=== PATIENT | female | born 1950 | race Caucasian/White ===

== ENCOUNTER → 2017-02-04 | Outpatient (CLI) | payer BC, SELFPAY | PROVIDERS: Family Provider Family Medicine; Visit Provider Family Medicine | DX: R05 Cough (principal) | CPT/HCPCS: 71020 ==

== ENCOUNTER → 2017-10-22 08:16 | Outpatient (CLI) | payer MEDICARE, BC, SELFPAY ==
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
== END ==
PROVIDERS: Family Provider Family Medicine; PCP Family Medicine; Visit Provider Family Medicine
DX: Z78.0 Asymptomatic menopausal state (principal)
CPT/HCPCS: 77080

== ENCOUNTER → 2018-02-05 09:01 | Outpatient (CLI) | payer MEDICARE, BC, SELFPAY ==
--- NOTE | 2018-02-05 09:10 | XR_ITS ---
XR chest 2V HISTORY: ITS.REASON: HTN, VIT D DEFICIENCY,GERD, ACQUIRED VENTRICULAR HYPERTROPHY ORDERING PHYSICIAN: James Rose MD PATIENT AGE: 67 years COMPARISON: PA and lateral chest 02/04/2017 FINDINGS: The cardiomediastinal silhouette and pulmonary vascularity are within normal limits. There is a subtle ill-defined opacity in the right infrahilar region seen on the PA projection which is likely confluence of vascular shadows but there is no definite abnormality seen on the lateral projection. This tends to favor confluence of vascular shadows rather than an early pneumonic infiltrate. No acute bony abnormalities. IMPRESSION: Negative chest, no acute finding
== END ==
PROVIDERS: PCP Family Medicine; Visit Provider Family Medicine
DX: K21.9 Gastro-esophageal reflux disease without esophagitis; R73.9 Hyperglycemia, unspecified; E78.2 Mixed hyperlipidemia; E55.9 Vitamin D deficiency, unspecified; Z68.41 Body mass index [BMI] 40.0-44.9, adult; I11.9 Hypertensive heart disease without heart failure
CPT/HCPCS: 71046

== ENCOUNTER → 2019-01-27 13:55 | Outpatient (CLI) | payer MEDICARE, BC, SELFPAY ==
[2019-01-27 16:09] LABS: Blood Urea Nitrogen 18 mg/dL (7-18); Creatinine,Serum 1.06 mg/dL (0.55-1.02); Estimated Glomerular Filt Rate 52 ml/min (>60); GFR (African American) 63 ML/MIN (>60)
== END ==
PROVIDERS: Visit Provider Family Medicine
DX: R10.31 Right lower quadrant pain (principal)
CPT/HCPCS: 36415; 82565; 84520

== ENCOUNTER → 2019-02-04 08:44 | Outpatient (CLI) | payer MEDICARE, BC, SELFPAY ==
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
== END ==
PROVIDERS: PCP Family Medicine; Visit Provider Family Medicine
DX: R10.31 Right lower quadrant pain (principal); R31.29 Other microscopic hematuria
CPT/HCPCS: 74177; Q9967

== ENCOUNTER 2019-09-10 18:09 | Emergency (ER) | payer MEDICARE, BC, SELFPAY ==
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
[2019-09-10 18:13] VITALS: BP 139/72; PULSE 74; RESP 18; TEMP 36.8; O2SAT 96
--- NOTE | 2019-09-10 18:13 | PC.NURSE ---
Trauma Alert Cancelled.
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
[2019-09-10 18:20] VITALS: BMI 46.0
--- NOTE | 2019-09-10 18:20 | PC.NURSE ---
pt to CT
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
[2019-09-10 18:26] LABS: Basophils # 0.1 K/mm3 (0-0.2); Basophils % 0.5 % (0.1-2.0); Eosinophils # 0.2 K/mm3 (0.0-0.4); Eosinophils % 1.9 % (0.1-12.0); Hematocrit 39.6 % (37.0-47.0); Hemoglobin 14.1 g/dL (12.2-16.2); Lymphocytes # 4.2 K/mm3 (0.7-4.5); Lymphocytes % 39.4 % (10-50); Mean Corpuscular HGB Conc 35.7 g/dL (31.8-35.4); Mean Corpuscular Hemoglobin 30.8 pg (27.0-31.2); Mean Corpuscular Volume 86.4 fl (81-99); Mean Platelet Volume 7.5 fl (7.4-10.4); Monocytes # 0.6 K/mm3 (0.1-1.0); Neutrophils # 5.6 K/mm3 (1.8-7.8); Neutrophils % 52.3 % (37.0-80.0); Platelet Count 404 K/mm3 (142-424); Red Blood Count 4.58 M/mm3 (4.20-5.40); White Blood Count 10.7 K/mm3 (4.8-10.8)
[2019-09-10 18:28] LABS: Chloride 103 mmol/L (98-107)
[2019-09-10 18:29] LABS: Potassium 3.6 mmoL/L (3.5-5.1); Sodium 140 mmol/L (136-145)
[2019-09-10 18:31] LABS: Alanine Aminotransferase 31 U/L (12-78); Albumin Level 4.3 g/dl (3.5-5.0); Alkaline Phosphatase 69 U/L (38-126); Anion Gap 13.6 mEq/L (5-15); Aspartate Amino Transferase 27 U/L (14-36); Bilirubin,Total 0.5 mg/dl (0.2-1.3); Blood Urea Nitrogen 17 mg/dl (7-17); Carbon Dioxide 27 mmol/L (22.0-30.0); Creatinine Clearance Estimated 45 mL/min (50-200); Estimated Glomerular Filt Rate 72 ml/min (>60); GFR (African American) 87 ML/MIN (>60); Total Protein,Serum 7.2 g/dl (6.3-8.2)
[2019-09-10 18:32] LABS: Albumin/Globulin Ratio 1.5 (1.1-1.8); Calcium 9.6 mg/dl (8.4-10.2); Globulin 2.9 g/dL (1.3-3.2); Glucose 139 mg/dl (74-100)
[2019-09-10 18:43] LABS: Activated Partial Thrombo Time 20.7 seconds (23.6-34.0); INR 1.01 (0.9-1.1); Prothrombin Time 10.4 seconds (9.4-11.8)
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
[2019-09-10 19:00] VITALS: BP 117/56; PULSE 68; RESP 18; O2SAT 98
[2019-09-10 19:07] VITALS: BP 117/59; PULSE 67; O2SAT 97
--- NOTE | 2019-09-10 19:19 | PC.NURSE ---
shift change report given to [facility]
[2019-09-10 19:57] VITALS: BP 115/63; PULSE 67; RESP 17; TEMP 36.8; O2SAT 97
== END 2019-09-10 20:00 | disposition home or self-care (01) ==
PROVIDERS: Emergency Provider Emergency Medicine; PCP Family Medicine
DX: S00.531A Contusion of lip, initial encounter (principal); S50.02XA Contusion of left elbow, initial encounter; S70.01XA Contusion of right hip, initial encounter; S60.212A Contusion of left wrist, initial encounter; S20.212A Contusion of left front wall of thorax, initial encounter; S20.211A Contusion of right front wall of thorax, initial encounter; R51 Headache; V86.55XA Driver of 3- or 4- wheeled all-terrain vehicle (ATV) injured in nontraffic accident, initial encounter; Y92.73 Farm field as the place of occurrence of the external cause; I10 Essential (primary) hypertension; K21.9 Gastro-esophageal reflux disease without esophagitis; Z88.1 Allergy status to other antibiotic agents; E78.5 Hyperlipidemia, unspecified; Z79.899 Other long term (current) drug therapy
CPT/HCPCS: 70450; 71045; 72125; 73080; 73110; 73502; 80053; 85025; 85610; 85730; 96374; 99282

== ENCOUNTER → 2020-04-25 10:16 | Outpatient (CLI) | payer MEDICARE, BC, SELFPAY ==
--- NOTE | 2020-04-25 10:20 | CT_ITS ---
PROCEDURE: CT ABDOMEN WO CON CLINICAL HISTORY: ABD PAIN Right sided abd pain Prior on pacs COMPARISON: CT CT ABDOMEN PELVIS W CON from 02/04/2019 TECHNIQUE: Axial images obtained with sagittal and coronal reformats. All CT scans at the facility use one or more dose reduction, viz: automated exposure control, ma/kV adjustment per patient size (including targeted exams where dose is matched to indication, i.e. head), or iterative reconstruction technique. FINDINGS: Hepatic steatosis. Prior cholecystectomy. Small hiatal hernia. No focal liver lesion identified without contrast. The spleen, adrenal glands, and pancreas has an unremarkable unenhanced appearance. No renal or ureteral calculi. Parapelvic renal cyst on the left and small right renal cortical cyst. No renal or ureteral calculi. No hydronephrosis. Colonic diverticulosis is present. No evidence of appendicitis or diverticulitis. The pelvis is not imaged on this exam. No acute bony findings. IMPRESSION: As above, no acute finding Dictated by: Nicho Salcedo MD 04/27/2020 10:12 Nicho Salcedo MD in [facility] 04/27/2020 10:12
== END ==
PROVIDERS: PCP Family Medicine; Visit Provider Family Medicine
DX: R10.84 Generalized abdominal pain (principal)
CPT/HCPCS: 74150

== ENCOUNTER → 2022-01-07 12:12 | Outpatient (CLI) | payer MEDICARE, BC, SELFPAY ==
--- NOTE | 2022-01-07 12:15 | CA_ITS ---
FINAL REPORT TECHNIQUE: Compression goldsmith scale and Doppler evaluation CLINICAL HISTORY: .right posterior knee pain, obesity FINDINGS: Femoral and popliteal veins show normal compressibility and flow. Visualized portion of the calf veins are patent by Doppler exam. IMPRESSION: No evidence of right lower extremity deep venous thrombosis Reviewed, Interpreted and Dictated by Maya Sewell MD Transcribed by Anne Jain Authenticated and [facility]
== END ==
PROVIDERS: PCP Family Medicine; Visit Provider Family Medicine
DX: M79.604 Pain in right leg (principal); R60.0 Localized edema
CPT/HCPCS: 93971

== ENCOUNTER 2023-04-28 13:12 | Outpatient (CLI) | payer MEDICARE, BC, SELFPAY ==
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
[2023-04-28 13:44] LABS: Blood Urea Nitrogen 15 mg/dl (7-17); Estimated Glomerular Filt Rate 62 ml/min (>60); GFR (African American) 75 ML/MIN (>60)
[2023-04-28] MEDS: GADOTERIDOL INJ 17ML SYRINGE 25 ML IV (14:26)
[2023-04-28] MEDS: SODIUM CHLORIDE 0.9% 10ML SYR (RAD ONLY) 10 ML IV (14:26)
== END 2023-04-28 23:59 ==
LOC: RAD 13:12
PROVIDERS: PCP Family Medicine; Visit Provider Family Medicine
DX: R51.9 Headache, unspecified (principal)
CPT/HCPCS: 36415; 70553; 82565; 84520; A9576